=== PATIENT | male | born 1965 | race Caucasian/White ===

== ENCOUNTER 2018-01-14 09:13 | Emergency (ER) | payer SELFPAY ==
[~2018-01-14] VITALS: Ht 175.3 cm; Wt 77.1 kg
[2018-01-14] MEDS ORDERED: FENOFIBRATE145 MG PO (09:41)
[2018-01-14] MEDS ORDERED: SIMVASTATIN20 MG PO (09:41)
[2018-01-14] MEDS ORDERED: ASPIRIN 81 MG CHEW TAB PO ONE (09:45)
[2018-01-14 10:15] LABS: BILIRUBIN,URINE NEGATIVE (NEGATIVE); KETONES,URINE NEGATIVE (NEGATIVE); LEUKOCYTE ESTERASE ,URINE NEGATIVE (NEGATIVE); NITRITE,URINE NEGATIVE (NEGATIVE); PROTEIN,URINE DIPSTICK NEGATIVE (NEGATIVE); URINE UROBILINOGEN 0.2 mg/dL (0.2 - 1)
[2018-01-14 10:23] LABS: COLOR,URINE YELLOW (YELLOW)
[2018-01-14 10:37] LABS: CLARITY,URINE CLEAR (CLEAR); EPITHELIAL CELLS,URINE RARE /LPF
[2018-01-14 10:37] LABS: BASOPHILS # (AUTO) 0.1 (0.0-0.1); BASOPHILS % 0.8 % (0.0-1.0); EOSINOPHILS # (AUTO) 0.3 (0.0-0.4); EOSINOPHILS % 4.8 % (0.0-6.0); HEMATOCRIT 44.9 % (38.2-49.6); HEMOGLOBIN 15.3 g/dL (14.0-18.0); LYMPHOCYTES # (AUTO) 1.6 (1.0-3.2); LYMPHOCYTES % 26.2 % (18.0-39.1); MEAN CORPUSCULAR HEMOGLOBIN 30.2 pg (28-32); MEAN CORPUSCULAR HGB CONC 34.1 g/dL (31-35); MEAN CORPUSCULAR VOLUME 88.6 fL (81-99); MONOCYTES # (AUTO) 0.5 (0.2-0.8); MONOCYTES % 8.2 % (4.4-11.3); NEUTROPHILS # (AUTO) 3.7 (2.1-6.9); NEUTROPHILS % 59.8 % (38.7-80.0); PLATELET COUNT 217 x10e3/uL (140-360); RED BLOOD COUNT 5.07 x10e6/uL (4.3-5.7); RED CELL DISTRIBUTION WIDTH 12.7 % (11.7-14.4)
[2018-01-14 11:01] LABS: ALANINE AMINOTRANSFERASE 89 IU/L (0-55); ALBUMIN 4.3 g/dL (3.5-5.0); ALBUMIN/GLOBULIN RATIO 1.2 (0.8-2.0); ALKALINE PHOSPHATASE 66 IU/L (40-150); ANION GAP 12.2 mmol/L (8-16); BLOOD UREA NITROGEN 11 mg/dL (7-26); BUN/CREATININE RATIO 10 (6-25); CALCIUM 9.4 mg/dL (8.4-10.2); CARBON DIOXIDE 27 mmol/L (22-29); CHLORIDE 105 mmol/L (98-107); CREATINE KINASE 68 IU/L (30-200); CREATININE, SERUM 1.14 mg/dL (0.72-1.25); EST GLOMERULAR FILTRATION RATE > 60 ML/MIN (60-); GLUCOSE 104 mg/dL (74-118); POTASSIUM 4.2 mmol/L (3.5-5.1); SODIUM 140 mmol/L (136-145)
--- NOTE | 2018-01-14 11:12 | Diagnostic Imaging Report ---
PROCEDURE: CHEST SINGLE (PORTABLE) COMPARISON: None. INDICATIONS: CHEST PAIN FINDINGS: LUNGS: No consolidations or edema. PLEURA: No effusions or pneumothorax. HEART \T\ MEDIASTINUM: The heart is within normal size-limits. BONES \T\ SOFT TISSUES: No acute findings. CONCLUSION: No acute thoracic abnormality. Wyatt Jacobsen D.O. Dictated by: Wyatt Jacobsen D.O. on 01/14/2018 at 11:12 Electronically approved by: Wyatt Jacobsen D.O. on 01/14/2018 at 11:12
[2018-01-14 11:45] LABS: INR 1.01; PROTHROMBIN TIME 12.5 seconds (11.9-14.5)
[2018-01-14 11:46] LABS: PARTIAL THROMBOPLASTIN TIME 29.3 seconds (23.8-35.5)
== END 2018-01-14 12:35 | disposition home or self-care (01) ==
LOC: ER 09:13
DX: R07.89 Other chest pain (principal)
CPT/HCPCS: 36415; 71045; 80053; 81001; 82550; 82553; 84484; 85025; 85610; 85730; 87086; 93005; 99284

== ENCOUNTER 2018-03-27 18:34 | Emergency (ER) | payer SELFPAY ==
[~2018-03-27] VITALS: Ht 175.3 cm; Wt 77.1 kg
[~2018-03-27 18:34] MED LIST: FENOFIBRATE145 MG PO; SIMVASTATIN20 MG PO
--- OUTSIDE RECORDS SUMMARY | 2018-03-27 18:36 | XMS REPORT | Continuity of Care Document ---
Author Author [facility] Organization [facility] Address [address] [place] [address] Phone Unavailable Care Team Providers Care Manager [employer] Name Role Phone NONSTAFF PCP Unavailable Advance Directives Directive Response Recorded Date/Time Does the patient have an advance directive? No 01/14/18 11:57am If yes, is advance directive on file with [facility]? No 01/14/18 11:57am If not on file with [facility] will patient provide a copy? No 01/14/18 11:57am Do you have a Directive to Physician? No 01/14/18 11:57am Do you have a Medical Power of Bankruptcy Paralegal? No 01/14/18 11:57am Do you have an out of hospital Do Not Resuscitate Order? No 01/14/18 11:57am Do you have any special needs we should be aware of? No 01/14/18 11:57am Do you have a support person here with you today? Yes 01/14/18 11:57am Did patient receive Notice of Privacy Practices? Yes 01/14/18 11:57am Did patient receive patient rights and responsibilities? Yes 01/14/18 11:57am Problems No problem information available. Medications Current Home Medications Medication Dose Units Route Directions Days Qty Instructions Start Date Fenofibrate Nanocrystallized (Fenofibrate) 145 Mg Tablet 1 Tab Oral Daily Simvastatin 20 Mg Tablet 20 Mg Oral Today At 9:00PM Social History Smoking Status Start Date Stop Date Current every day smoker Hospital Discharge Instructions No hospital discharge instruction information available. Plan of Care Discharge Date 01/14/18 12:35pm Disposition HOME, SELF-CARE Condition at Discharge Stable Instructions/Education Provided Chest Pain - Noncardiac Forms Provided Work/School Excuse Prescriptions See Medication Section Referrals [facility] Additional Instructions/Education FOLLOW UP WITH YOUR PRIMARY DOCTOR IN 7 DAYS IF NOT WELL NO STRENUOUS ACTIVITY STOP SMOKING Functional Status No functional status information available. Allergies, Adverse Reactions, Alerts No known allergies. Immunizations No immunization information available. Vital Signs Acute Vital Signs Vital Response Date/Time Height 5 ft 9 in 01/14/2018 9:36am Weight 170 lb 01/14/2018 9:36am Body Mass Index 25.1 kg/m^2 01/14/2018 9:36am Results Laboratory Results Test Name Result Units Flags Reference Collection Date/Time Result Date/ Time Comments White Blood Count 6.22 x10e3/uL 4.8-10.8 01/14/2018 10:34am 01/14/2018 11:04am Red Blood Count 5.07 x10e6/uL 4.3-5.7 01/14/2018 10:34a01/14/2018 11: 04am Hemoglobin 15.3 g/dL 14.0-18.0 01/14/2018 10:34a01/14/2018 11:04am Hematocrit 44.9 % 38.2-49.6 01/14/2018 10:34a01/14/2018 11:04am Mean Corpuscular Volume 88.6 fL 81-99 01/14/2018 10:34a01/14/2018 11: 04am Mean Corpuscular Hemoglobin 30.2 pg 28-32 01/14/2018 10:34a2017 11:04am Mean Corpuscular Hemoglobin Concent 34.1 g/dL 31-35 01/14/2018 10:34a01/14/2018 11:04am Red Cell Distribution Width 12.7 % 11.7-14.4 01/14/2018 10:34a2017 11:04am Platelet Count 217 x10e3/uL 140-360 01/14/2018 10:34am 01/14/2018 11: 04am Neutrophils (%) (Auto) 59.8 % 38.7-80.0 01/14/2018 10:34am 01/14/2018 11:04am Lymphocytes (%) (Auto) 26.2 % 18.0-39.1 01/14/2018 10: 01/14/2018 11:04am Monocytes (%) (Auto) 8.2 % 4.4-11.3 01/14/2018 10:01/14/2018 11: 04am Eosinophils (%) (Auto) 4.8 % 0.0-6.0 01/14/2018 10:formerly [facility] 01/14/2018 11: 04am Basophils (%) (Auto) 0.8 % 0.0-1.0 01/14/2018 10:formerly [facility] 01/14/2018 11: 04am IM GRANULOCYTES % 0.2 % 0.0-1.0 01/14/2018 10: 01/14/2018 11:04am Neutrophils # (Auto) 3.7 2.1-6.9 01/14/2018 10:formerly [facility] 01/14/2018 11: 04am Lymphocytes # (Auto) 1.6 1.0-3.2 01/14/2018 10:formerly [facility] 01/14/2018 11: 04am Monocytes # (Auto) 0.5 0.2-0.8 01/14/2018 10: 01/14/2018 11:04am Eosinophils # (Auto) 0.3 0.0-0.4 01/14/2018 10: 01/14/2018 11: 04am Basophils # (Auto) 0.1 0.0-0.1 01/14/2018 10:formerly [facility] 01/14/2018 11:04am Absolute Immature Granulocyte (auto 0.01 x10e3/uL 0-0.1 01/14/2018 10: formerly [facility] 01/14/2018 11:04am Prothrombin Time 12.5 seconds 11.9-14.5 01/14/2018 10:formerly [facility] 01/14/2018 12:00pm Prothromb Time International Ratio 1.01 01/14/2018 10:2017 12:00pm Oral Anticoagulant Therapy INR Values: 1. Low Intensity Therapy 1.5 - 2.0 2. Moderate Intensity Therapy 2.0 - 3.0 3. High Intensity Therapy(1) 2.5 - 3.5 4. High Intensity Therapy(2) 3.0 - 4.0 5. Panic Value INR > 5.0 Activated Partial Thromboplast Time 29.3 seconds 23.8-35.5 01/14/2018 10 :34am 01/14/2018 12:00pm Urine Color YELLOW YELLOW 01/14/2018 9:47am 01/14/2018 10:23am Urine Clarity CLEAR CLEAR 01/14/2018 9:47am 01/14/2018 10:37am Urine Specific [facility] 1.020 1.010-1.025 01/14/2018 9:47am 2017 10:23am Urine pH 7 5 - 7 01/14/2018 9:47am 01/14/2018 10:23am Urine Leukocyte Esterase NEGATIVE NEGATIVE 01/14/2018 9:47am 2017 10:23am Urine Nitrite NEGATIVE NEGATIVE 01/14/2018 9:47am 01/14/2018 10:23am Urine Protein NEGATIVE NEGATIVE 01/14/2018 9:47am 01/14/2018 10:23am Urine Glucose (UA) NEGATIVE NEGATIVE 01/14/2018 9:47am 01/14/2018 10: 23am Urine Ketones NEGATIVE NEGATIVE 01/14/2018 9:47am 01/14/2018 10:23am Urine Urobilinogen 0.2 mg/dL 0.2 - 1 01/14/2018 9:47am 01/14/2018 10: 23am Urine Bilirubin NEGATIVE NEGATIVE 01/14/2018 9:47am 01/14/2018 10: 23am Urine Blood NEGATIVE NEGATIVE 01/14/2018 9:47am 01/14/2018 10:23am Urine WBC NONE /HPF 0-5 01/14/2018 9:47am 01/14/2018 10:37am Urine RBC NONE /HPF 0-5 01/14/2018 9:47am 01/14/2018 10:37am Urine Bacteria NONE /HPF NONE 01/14/2018 9:47am 01/14/2018 10:37am Urine Epithelial Cells RARE /LPF NONE 01/14/2018 9:47am 01/14/2018 10: 37am Sodium Level 140 mmol/L 136-145 01/14/2018 10:34am 01/14/2018 11:05am Potassium Level 4.2 mmol/L 3.5-5.1 01/14/2018 10:34am 01/14/2018 11: 05am Chloride Level 105 mmol/L 98-107 01/14/2018 10:01/14/2018 11:05am Carbon Dioxide Level 27 mmol/L 22-29 01/14/2018 10:01/14/2018 11: 05am Anion Gap 12.2 mmol/L 8-16 01/14/2018 10:01/14/2018 11:05am Blood Urea Nitrogen 11 mg/dL 7-26 01/14/2018 10:01/14/2018 11: 05am Creatinine 1.14 mg/dL 0.72-1.25 01/14/2018 10:01/14/2018 11:05am BUN/Creatinine Ratio 10 6-25 01/14/2018 10:01/14/2018 11:05am Estimat Glomerular Filtration Rate > 60 ML/MIN 60- 01/14/2018 10:01/14/2018 11:05am Ranges were taken from the National Kidney Disease Education Program and the National Kid[employer] Foundation literature. Reference ranges: 60 or greater: Normal 16-59 (for 3 consecutive months): Chronic kidney disease 15 or less: Kidney failure Glucose Level 104 mg/dL 74-118 01/14/2018 10:01/14/2018 11:05am Calcium Level 9.4 mg/dL 8.4-10.2 01/14/2018 10:01/14/2018 11:05am Total Bilirubin 0.8 mg/dL 0.2-1.2 01/14/2018 10:01/14/2018 11: 05am Aspartate Amino Transf (AST/SGOT) 61 IU/L H 5-34 01/14/2018 10: 11:05am Alanine Aminotransferase (ALT/SGPT) 89 IU/L H 0-55 01/14/2018 10: 11:05am Total Protein 7.8 g/dL 6.5-8.1 01/14/2018 10:01/14/2018 11:05am Albumin 4.3 g/dL 3.5-5.0 01/14/2018 10:01/14/2018 11:05am Globulin 3.5 g/dL 2.3-3.5 01/14/2018 10:01/14/2018 11:05am Albumin/Globulin Ratio 1.2 0.8-2.0 01/14/2018 10:34am 01/14/2018 11: 05am Alkaline Phosphatase 66 IU/L 40-150 01/14/2018 10:34am 01/14/2018 11: 05am Creatine Kinase 68 IU/L 30-200 01/14/2018 10:34am 01/14/2018 11:05am Creatine Kinase MB 1.10 ng/mL 0.00-5.00 01/14/2018 10:34am 01/14/2018 11:09am Troponin I < 0.001 ng/mL 0-0.300 01/14/2018 10:34am 01/14/2018 11:09am Procedures No procedure information available. Encounters Encounter Location Arrival/Admit Date Discharge/Depart Date Attending Provider Departed Emergency Room [facility] 01/14/18 9:13am 12:35pm KALIE GIRARD MD
--- OUTSIDE RECORDS SUMMARY | 2018-03-27 18:36 | XMS REPORT ---
[facility] Phone Unavailable Care Team Providers Care Die Attacher Name Role Phone KALIE GIRARD Unavailable Unavailable Problems This patient has no known problems. Allergies, Adverse Reactions, Alerts This patient has no known allergies or adverse reactions. Medications This patient has no known medications. Encounters Start Date/Time End Date/Time Encounter Type Admission Type Attending [facility] Care Facility Care Department Encounter ID 2018-05-06 00:00:00 2018-05-06 00:00:00 Outpatient [facility] [id number] 2018-05-05 00:00:00 2018-05-05 00:00:00 Outpatient [facility] [id number] 2018-04-08 00:00:00 2018-04-08 00:00:00 Outpatient [facility] [id number] 2018-03-25 09:44:47 2018-03-25 09:44:47 Outpatient [facility] [id number] 2018-03-18 07:02:51 2018-03-18 07:02:51 Outpatient [facility] [id number] 2018-03-11 08:11:50 2018-03-11 08:11:50 Outpatient [facility] [id number] 2018-03-09 00:00:00 2018-03-09 00:00:00 Outpatient [facility] [id number] 2018-03-04 09:57:01 2018-03-04 09:57:01 Outpatient [facility] [id number] 2018-02-24 00:00:00 2018-02-24 00:00:00 Outpatient [facility] [id number] 2018-02-24 00:00:00 2018-02-24 00:00:00 Outpatient [facility] [id number] 2018-02-19 00:00:00 2018-02-19 00:00:00 Outpatient [facility] [id number] 2018-02-19 00:00:00 2018-02-19 00:00:00 Outpatient [facility] [id number] 2018-02-03 00:00:00 2018-02-03 00:00:00 Outpatient [facility] [id number] 2018-01-28 00:00:00 2018-01-28 00:00:00 Outpatient [facility] [id number] 2018-01-21 07:52:35 2018-01-21 07:52:35 Outpatient [facility] [id number] 2018-01-18 13:01:33 2018-01-18 13:01:33 Outpatient [facility] [id number] 2018-01-08 00:00:00 2018-01-08 00:00:00 Outpatient [facility] [id number] 2017-12-24 00:00:00 2017-12-24 00:00:00 Outpatient [facility] [id number] 2017-08-31 13:12:58 2017-08-31 13:12:58 Outpatient [facility] [id number] Results Test Description Test Time Test Comments Text Results Atomic Results Result Comments CHEST SINGLE (PORTABLE) [place] [address] Patient Name: YO SOUSA MR #: [id number] : 1965 Age/Sex: 52/M Req #: [id number] Adm Physician: Ordered by: KALIE GIARRD MD Report #: [id number] Location: ER Room/Bed: Procedure: [id number] DX/CHEST SINGLE (PORTABLE) Exam Date: 01/14/18 Exam Time: 1045 REPORT STATUS: Signed PROCEDURE: CHEST SINGLE (PORTABLE) COMPARISON: None. INDICATIONS: CHEST PAIN FINDINGS: LUNGS: No consolidations or edema. PLEURA: No effusions or pneumothorax. HEART T MEDIASTINUM: The heart is within normal size-limits. BONES T SOFT TISSUES: No acute findings. CONCLUSION: No acute thoracic abnormality. Trevon Myers by: Jennifer Jacobsen D.O. on 01/14/2018 at 11:12 Electronically approved by: Jennifer Jacobsen D.O. on 01/14/2018 at 11:12 Dictated By: JENNIFER JACBOSEN DO 1112 Transcribed By: LIZET on 01/14/18 1112 COPY TO: KALIE GIRARD MD
[2018-03-27] MEDS ORDERED: TRAMADOL HCL 50 MG TAB PO ONE (19:15)
[2018-03-27] MEDS ORDERED: CYCLOBENZAPRINE HCL 10 MG TAB PO ONE (19:15)
--- NOTE | 2018-03-27 20:31 | Diagnostic Imaging Report ---
CERVICAL SPINE 4 OR 5 VIEWS HISTORY: Cervical spine fracture COMPARISON: None FINDINGS: Bones: No displaced fracture. Osseous alignment is within normal limits. Joints: There is narrowing of the intervertebral disc space at C3-4 and C4-5 levels. There is uncovertebral hypertrophy more significant at 4 and C4-5 levels. This finding results in oblique views with moderate narrowing of the C3-4 neural foramina right worse than left Soft tissues: The soft tissues appear unremarkable. IMPRESSION: 1. No acute radiographic abnormality. 2. Moderate bilateral foraminal stenosis at C3-4 secondary to degenerative disc and uncovertebral hypertrophy Signed by: Dr. Macho Arellano M.D. on 03/27/2018 8:27 PM
--- NOTE | 2018-03-27 20:31 | Diagnostic Imaging Report ---
FOREARM LEFT 2 VIEW HISTORY: Trauma, fracture COMPARISON: None FINDINGS: Bones: No displaced fracture. Osseous alignment is within normal limits. Joints: The joint spaces are well-maintained. Soft tissues: The soft tissues appear unremarkable. IMPRESSION: No acute radiographic abnormality. Signed by: Dr. Macho Arellano M.D. on 03/27/2018 8:27 PM
[2018-03-27 20:46] VITALS: BP 120/88
== END 2018-03-27 20:47 | disposition home or self-care (01) ==
LOC: ER 18:34
DX: M54.2 Cervicalgia (principal); S50.12XA Contusion of left forearm, initial encounter; V43.52XA Car driver injured in collision with other type car in traffic accident, initial encounter; Y92.488 Other paved roadways as the place of occurrence of the external cause; I10 Essential (primary) hypertension
CPT/HCPCS: 72050; 99283